=== PATIENT | male | born 1980 | race Caucasian/White ===

== ENCOUNTER 2019-07-15 10:21 | Emergency (ER) | payer OTHER ==
[~2019-07-15] VITALS: Ht 175.3 cm; Wt 82.6 kg
[2019-07-15] MEDS ORDERED: LORAZEPAM 1 MG TABLET ONE (10:29)
[2019-07-15] MEDS ORDERED: LORAZEPAM 1 MG TABLET PO ONE (10:30)
--- NOTE | 2019-07-15 10:32 | NUR ---
ANNY RA 88 Homeless "smoked meth at 8am thinks people are following him. Patient a/ox4, sitter at bedside for safety. No dsitress noted, will continue to monitor.
--- NOTE | 2019-07-15 13:00 | NUR ---
PATIENT A/O4, BREATHING EVEN AND UNLABORED, NO SOB NOTED, NEEDS ATTENDED. KEPT COMFORTABLE.
--- NOTE | 2019-07-15 14:05 | NUR ---
Patient seen by social sciences chairGloria. Resources provided. Per patient he lives in a transitional house. Patient given written and verbal discharge instructions. Patient verbalizes understanding of instructions. Patient is ambulatory with steady gait. Refuses offer of [facility] placement. Patient given list of available shelters in surrounding area.
[2019-07-15 14:06] VITALS: BP 140/93
--- NOTE | 2019-07-15 14:13 | NUR ---
SOCIAL WORK NOTE: Pt is a 39 year old homeless male BIB EMS after pt had smoked methamphetamine just prior to arrival. Per pt, he was scared and had been feeling anxious and thought people were following him. Pt states he has been homeless for a year after he his partner, pt states he has been receiving substance abuse treatment through [facility] since August 2018 and states he is currently living at a transitional house through [facility] ([address] [address]) Pt states that is where he will return upon discharge. Pt states he drove to the [facility] Address: [address], [place] [address] this morning and called 911 after he began feeling scared and paranoid due to methamphetamine. Pt is alert and oriented x4 and appears well groomed and dressed. Pt is hyperverbal with tangential speech. Pt denied suicidal/homicidal ideation and denied visual/auditory hallucinations. SW provided pt with homeless resources and pt also signed the homeless waiver. Copies of homeless resources were also placed in pts chart.
== END 2019-07-15 14:07 | disposition home or self-care (01) ==
LOC: ER 10:23
DX: F15.10 Other stimulant abuse, uncomplicated (principal); Z59.0 Homelessness